=== PATIENT | male | born 1960 | race Caucasian/White ===

== ENCOUNTER 2017-06-25 08:43 | Emergency (ER) | payer OTHER ==
[~2017-06-25] VITALS: Ht 170.2 cm; Wt 119.0 kg
[~2017-06-25 08:43] MED LIST: ALLEGRA ALLERG180 MG PO; CENTRUM MEN'S1 EACH PO; LISINOPRIL10 MG PO; NAPROSYN500 MG PO; PERCOCET 5/31 TABLET PO; PRAVASTATIN SOD20 MG PO; VALIUM5 MG PO
[2017-06-25 09:36] LABS: MCH 27.7 PG (29.0-34.0); MCHC 33.2 G/DL (30.0-36.0); MCV 83.5 FL (86-99); MEAN PLAT.VOLUME 11.2 uM^3 (9.0-12.4); PLATELET COUNT 208 K/uL (156-360); RBC DIS.WIDTH-CV 12.5 % (11.8-14.6); RBC DIS.WIDTH-SD 37.6 % (39-53); RED BLOOD COUNT 5.27 M/uL (4.00-5.50); WHITE BLOOD COUNT 14.9 K/uL (4.1-10.2)
[2017-06-25 09:45] LABS: CHLORIDE 106 mEq/L (99-109); POTASSIUM 4.1 mEq/L (3.7-5.4); SODIUM 139 mEq/L (136-147)
[2017-06-25 09:48] LABS: ANION GAP 10 MEQ/L (2-14)
[2017-06-25 09:50] LABS: GFR ESTIMATE (CALCULATED) > 59 mL/min/
[2017-06-25 09:51] LABS: UREA NITROGEN (BUN) 26 mg/dL (9-23)
[2017-06-25 10:25] LABS: GLUCOSE 183 mg/dL (70-99)
[2017-06-25 10:54] LABS: ADD MIUA? YES; BILIRUBIN NEGATIVE; BLOOD LARGE; COLOR YELLOW ((YELLOW)); GLUCOSE (STRIP) 50; KETONES NEGATIVE; LEUKOCYTES NEGATIVE; NITRITE NEGATIVE; PROTEIN (STRIP) 100; SPECIFIC GRAVITY 1.023 (1.000-1.030); UROBILINOGEN 0.2 MG/DL (0.2-1.0)
[2017-06-25] MEDS ORDERED: PERCOCET 5/31 TABLET PO (11:02)
[2017-06-25] MEDS ORDERED: FLOMAX0.4 MG PO (11:02)
[2017-06-25] MEDS ORDERED: TORADOL10 MG PO (11:02)
[2017-06-25] MEDS ORDERED: ZOFRAN4 MG PO (11:02)
[2017-06-25 11:11] LABS: EPITHELIAL CELLS 1+ /HPF; MUCUS NONE SEEN /LPF; RED BLOOD CELLS 0-5 /HPF (0-5); WHITE BLOOD CELLS 40-50 /HPF (0-5)
[2017-06-25 11:12] LABS: BACTERIA RARE /HPF; CASTS NONE SEEN /LPF; CRYSTALS PRESENT; UCUL ADDED? YES; URIC ACID CRYSTALS 3+ /HPF
[2017-06-25] MEDS ORDERED: LEVAQUIN750 MG PO (11:37)
[2017-06-25 12:44] VITALS: BP 175/87
== END 2017-06-25 12:44 | disposition home or self-care (01) ==
LOC: EME 08:43
PROVIDERS: Emergency Medicine
DX: N20.0 Calculus of kidney (principal)
CPT/HCPCS: 74176; 80048; 81003; 85027; 87086; 99281; 99284; J0696; J1885; J2405; J3010; J7030; J7050